=== PATIENT | male | born 1955 | race Caucasian/White ===

== ENCOUNTER 2016-11-23 13:19 | Inpatient (IN) | payer MEDICAID ==
[~2016-11-23] VITALS: Ht 175.3 cm; Wt 68.2 kg
[~2016-11-23 13:19] MED LIST: OXYC10TA6 PO
[2016-11-23] MEDS ORDERED: SODIUM CHLORIDE 0.9% 1,000 ML IV ONE (13:52)
[2016-11-23] MEDS ORDERED: LIDOCAINE 1%, 20ML ONE (13:56)
[2016-11-23] MEDS ORDERED: SENN8.6T4 PO (13:57)
[2016-11-23] MEDS ORDERED: PROM25SU34 RC (13:57)
[2016-11-23] MEDS ORDERED: OXYC15TA75 PO (13:57)
[2016-11-23] MEDS ORDERED: POLY17PO5 PO (13:57)
[2016-11-23] MEDS ORDERED: PRAZ2CAP PO (13:57)
[2016-11-23] MEDS ORDERED: OMEP20TA62 PO (13:57)
[2016-11-23] MEDS ORDERED: METH-356 PO (13:59)
[2016-11-23] MEDS ORDERED: LORA2TAB99 PO (13:59)
[2016-11-23] MEDS ORDERED: [UNRECOGNIZED DRUG - CODE] PO (13:59)
[2016-11-23] MEDS ORDERED: FURO-93 PO (13:59)
[2016-11-23] MEDS ORDERED: FAMOTIDINE 20 MG/2 ML IVP ONE (14:00)
[2016-11-23] MEDS ORDERED: ONDANSETRON 2MG/ML, 2ML IVPush ONE (14:00)
[2016-11-23] MEDS ORDERED: SODIUM CHLORIDE FLUSH 10ML SYR IVF ONE (14:00)
[2016-11-23] MEDS ORDERED: HYDROmorphone 1 MG/ML, 1ML ONE ×2 (14:08→15:17)
[2016-11-23] MEDS ORDERED: ONDANSETRON 2MG/ML, 2ML ONE (14:08)
[2016-11-23] MEDS ORDERED: LORazepam 2 MG/ML, 1ML ONE (14:09)
[2016-11-23] MEDS ORDERED: FAMOTIDINE 20 MG/2 ML ONE (14:09)
[2016-11-23] MEDS: HYDROmorphone 1 MG/ML, 1ML IVPush PRN ×2 (14:15→15:23)
[2016-11-23 14:34] LABS: BLOOD UREA NITROGEN 38 mg/dL (7-18)
[2016-11-23 14:37] LABS: ASPARTATE AMINO TRANSFERASE 96 U/L (15-37)
[2016-11-23 14:48] LABS: DIFF TOTAL CELLS COUNTED 100 CELL DIFF
[2016-11-23 14:50] LABS: ANISOCYTOSIS 2+; HYPOCHROMIA 1+; POIKILOCYTOSIS 1+; TARGET CELLS 1+; VERIFY COUNTS? YES
[2016-11-23 14:51] LABS: LARGE PLATELETS 1+
[2016-11-23] MEDS ORDERED: SODIUM CHLORIDE 0.9% 1,000ML IVBOLUS ONE (16:00)
[2016-11-23] MEDS: ENOXAPARIN 40 MG/0.4 ML SQ SCH (17:00)
[2016-11-23] MEDS ORDERED: ONDANSETRON 2MG/ML, 2ML IVPush PRN (17:00)
[2016-11-23] MEDS: morphine SULFATE ORAL.CONC 20 MG/ML PO SCH ×2 (17:00→19:00)
[2016-11-23] MEDS ORDERED: morphine SULFATE 10 MG/ML, 1ML IVPush PRN (17:00)
[2016-11-23] MEDS ORDERED: ACETAMINOPHEN 325 MG TABLET PO PRN (17:00)
[2016-11-23] MEDS ORDERED: hydrALAzine 20 MG/ML, 1ML IVPush PRN (17:00)
[2016-11-23 17:30] VITALS: BP 98/62
[2016-11-23] MEDS: OXYcodone IR 5MG TABLET PO PRN (18:37)
[2016-11-23 19:37] VITALS: BP 94/57
[2016-11-23] MEDS: SENNOSIDES 8.6 MG TABLET PO SCH (22:05)
[2016-11-23] MEDS: METHADONE 10 MG TABLET PO SCH (22:05)
[2016-11-23] MEDS: POLYETHYLENE GLYCOL 17 GM PACKET PO SCH (22:06)
[2016-11-23] MEDS: NICOTINE 21 MG/24 HR PATCH.TD24 TD SCH (22:06)
[2016-11-24 02:25] VITALS: BP 92/54
[2016-11-24] MEDS: OXYcodone IR 5MG TABLET PO PRN (03:39)
[2016-11-24 05:28] LABS: BLOOD UREA NITROGEN 37 mg/dL (7-18)
[2016-11-24 05:34] LABS: ASPARTATE AMINO TRANSFERASE 104 U/L (15-37)
[2016-11-24 05:49] LABS: DIFF TOTAL CELLS COUNTED 100 CELL DIFF
[2016-11-24 05:51] LABS: VERIFY COUNTS? YES
[2016-11-24 05:52] LABS: ANISOCYTOSIS 1+
[2016-11-24 05:55] LABS: OVALOCYTES 1+; TARGET CELLS 1+
[2016-11-24 05:57] LABS: MICROCYTOSIS 1+
[2016-11-24] MEDS ORDERED: GLUCAGON 1 MG IM PRN ×2 (06:00→07:30)
[2016-11-24] MEDS ORDERED: DEXTROSE 4 GM TAB.CHEW PO PRN ×2 (06:00→07:30)
[2016-11-24] MEDS ORDERED: DEXTROSE 50%, 50ML SYRINGE IVPush PRN ×2 (06:00→07:30)
[2016-11-24 06:26] VITALS: BP 100/61
[2016-11-24] MEDS: CEFTRIAXONE PMX 2GM/50ML 50 ML IV SCH (08:24)
[2016-11-24] MEDS: SENNOSIDES 8.6 MG TABLET PO SCH ×2 (08:24→19:36)
[2016-11-24] MEDS: METHADONE 10 MG TABLET PO SCH ×3 (08:24→23:03)
[2016-11-24] MEDS: PRAZOSIN 2 MG CAPSULE PO SCH (08:24)
[2016-11-24] MEDS: POLYETHYLENE GLYCOL 17 GM PACKET PO SCH ×2 (08:25→19:36)
[2016-11-24] MEDS: DOXYCYCLINE 100MG TABLET PO SCH ×2 (08:25→19:36)
[2016-11-24] MEDS: FUROSEMIDE 20 MG TABLET PO SCH (08:25)
[2016-11-24] MEDS: SODIUM CHLORIDE FLUSH 10ML SYR IVF SCH ×4 (08:26→19:36)
[2016-11-24] MEDS: OMEPRAZOLE MAGNESIUM 20 MG PO SCH ×2 (08:27)
[2016-11-24] MEDS ORDERED: morphine SULFATE 10 MG/ML, 1ML IVPush PRN (11:00)
[2016-11-24] MEDS ORDERED: morphine SULFATE ORAL.CONC 20 MG/ML PO PRN (13:00)
[2016-11-24 13:02] VITALS: BP 83/34
[2016-11-24 16:07] VITALS: BP 89/48
[2016-11-24 17:46] VITALS: BP 91/55
[2016-11-24] MEDS: ENOXAPARIN 40 MG/0.4 ML SQ SCH (17:53)
[2016-11-24] MEDS: NICOTINE 21 MG/24 HR PATCH.TD24 TD SCH (17:53)
[2016-11-24] MEDS: FERROUS SULFATE 325 MG TABLET PO SCH (17:54)
[2016-11-24 18:46] VITALS: BP 92/48
[2016-11-25 02:15] VITALS: BP 88/48
[2016-11-25 05:02] LABS: ASPARTATE AMINO TRANSFERASE 96 U/L (15-37); BLOOD UREA NITROGEN 47 mg/dL (7-18)
[2016-11-25 05:24] LABS: DIFF TOTAL CELLS COUNTED 100 CELL DIFF
[2016-11-25 05:26] LABS: ANISOCYTOSIS 1+; MICROCYTOSIS 1+; OVALOCYTES 1+; TARGET CELLS 1+; VERIFY COUNTS? YES
[2016-11-25 05:27] LABS: HYPOCHROMIA 1+
[2016-11-25 08:55] VITALS: BP 89/47
[2016-11-25] MEDS: CEFTRIAXONE PMX 2GM/50ML 50 ML IV SCH (09:01)
[2016-11-25] MEDS: POLYETHYLENE GLYCOL 17 GM PACKET PO SCH ×2 (09:01→20:48)
[2016-11-25] MEDS: DOXYCYCLINE 100MG TABLET PO SCH (09:02)
[2016-11-25] MEDS: FERROUS SULFATE 325 MG TABLET PO SCH ×2 (09:02→15:27)
[2016-11-25] MEDS: FUROSEMIDE 20 MG TABLET PO SCH (09:02)
[2016-11-25] MEDS: SENNOSIDES 8.6 MG TABLET PO SCH ×2 (09:02→20:48)
[2016-11-25] MEDS: MULTIVITAMIN 1 TABLET PO SCH (09:02)
[2016-11-25] MEDS: PRAZOSIN 2 MG CAPSULE PO SCH (09:02)
[2016-11-25] MEDS: OMEPRAZOLE MAGNESIUM 20 MG PO SCH ×2 (09:03)
[2016-11-25] MEDS: METHADONE 10 MG TABLET PO SCH ×3 (09:03→20:48)
[2016-11-25] MEDS: SODIUM CHLORIDE FLUSH 10ML SYR IVF SCH ×3 (09:03→20:48)
[2016-11-25 14:43] VITALS: BP 80/40
[2016-11-25] MEDS ORDERED: SODIUM CHLORIDE 0.9% 1,000 ML IV SCH ×2 (15:00→18:30)
[2016-11-25] MEDS: ENOXAPARIN 40 MG/0.4 ML SQ SCH (15:26)
[2016-11-25] MEDS: NICOTINE 21 MG/24 HR PATCH.TD24 TD SCH (15:26)
[2016-11-25] MEDS: METRONIDAZOLE PMX 500MG/100ML 100 ML IV SCH (18:02)
[2016-11-25] MEDS ORDERED: ACETAMINOPHEN 325 MG TABLET PO PRN (18:30)
[2016-11-25] MEDS ORDERED: morphine SULFATE ORAL.CONC 20 MG/ML PO PRN (18:30)
[2016-11-25] MEDS ORDERED: DEXTROSE 50%, 50ML SYRINGE IVPush PRN (18:30)
[2016-11-25] MEDS ORDERED: morphine SULFATE 10 MG/ML, 1ML IVPush PRN (18:30)
[2016-11-25] MEDS ORDERED: hydrALAzine 20 MG/ML, 1ML IVPush PRN (18:30)
[2016-11-25] MEDS ORDERED: DEXTROSE 4 GM TAB.CHEW PO PRN (18:30)
[2016-11-25] MEDS ORDERED: SODIUM CHLORIDE FLUSH 10ML SYR IVF SCH (21:00)
[2016-11-25 21:31] VITALS: BP 91/53
[2016-11-26] MEDS: METRONIDAZOLE PMX 500MG/100ML 100 ML IV SCH ×2 (00:46→09:38)
[2016-11-26 01:31] VITALS: BP 84/52
[2016-11-26 04:56] LABS: ASPARTATE AMINO TRANSFERASE 141 U/L (15-37); BLOOD UREA NITROGEN 51 mg/dL (7-18)
[2016-11-26 05:07] LABS: DIFF TOTAL CELLS COUNTED 100 CELL DIFF
[2016-11-26 05:10] LABS: VERIFY COUNTS? YES
[2016-11-26 05:11] LABS: ANISOCYTOSIS 1+; HYPOCHROMIA 1+; MICROCYTOSIS 1+; OVALOCYTES 1+; TARGET CELLS 1+
[2016-11-26] MEDS: FERROUS SULFATE 325 MG TABLET PO SCH (08:08)
[2016-11-26] MEDS: CEFTRIAXONE PMX 2GM/50ML 50 ML IV SCH (08:08)
[2016-11-26 08:27] VITALS: BP 79/44
[2016-11-26] MEDS ORDERED: D5%-0.45% NACL 500 ML IV SCH (08:30)
[2016-11-26] MEDS: SODIUM CHLORIDE FLUSH 10ML SYR IVF SCH (09:00)
[2016-11-26] MEDS: PRAZOSIN 2 MG CAPSULE PO SCH (09:00)
[2016-11-26] MEDS ORDERED: OMEPRAZOLE MAGNESIUM 20 MG PO SCH ×2 (09:00)
[2016-11-26] MEDS ORDERED: SODIUM CHLORIDE 0.9%, 250ML IVBOLUS ONE (09:30)
[2016-11-26] MEDS: POLYETHYLENE GLYCOL 17 GM PACKET PO SCH (09:38)
[2016-11-26] MEDS: METHADONE 10 MG TABLET PO SCH ×2 (09:38→16:00)
[2016-11-26] MEDS: MULTIVITAMIN 1 TABLET PO SCH (09:38)
[2016-11-26] MEDS: SENNOSIDES 8.6 MG TABLET PO SCH (09:38)
[2016-11-26] MEDS ORDERED: morphine SULFATE 125 MG in SODIUM CHLORIDE 0.9% 237.5 ML IV PRN (10:21)
[2016-11-26] MEDS ORDERED: LORazepam INTENSOL 2 MG/ML SL PRN (10:30)
[2016-11-26] MEDS ORDERED: SCOPOLAMINE PATCH, 1.5MG PATCH.TD72 TD PRN (10:30)
[2016-11-26] MEDS ORDERED: ATROPINE OPHTH SOLN 1%, 5ML BC PRN (10:30)
[2016-11-26] MEDS: NICOTINE 21 MG/24 HR PATCH.TD24 TD SCH (17:22)
== END 2016-11-27 14:13 | disposition expired | DRG 435 ==
LOC: ED 15:41 → EDIP 15:46 → 3NW 17:27
PROVIDERS: ADMIT Internal Medicine; ATTEND Internal Medicine
PROC: 0W9G3ZZ Drainage of Peritoneal Cavity, Percutaneous Approach (ICD-10-PCS; principal; 2016-11-23)
DX: C22.9 Malignant neoplasm of liver, not specified as primary or secondary (principal); E43 Unspecified severe protein-calorie malnutrition; J18.9 Pneumonia, unspecified organism; C79.51 Secondary malignant neoplasm of bone; E87.1 Hypo-osmolality and hyponatremia; R18.0 Malignant ascites; Z66 Do not resuscitate; D50.9 Iron deficiency anemia, unspecified; D63.8 Anemia in other chronic diseases classified elsewhere; K72.90 Hepatic failure, unspecified without coma; E16.2 Hypoglycemia, unspecified; K59.00 Constipation, unspecified; I95.9 Hypotension, unspecified; Z51.5 Encounter for palliative care; F41.9 Anxiety disorder, unspecified; G89.29 Other chronic pain; B19.20 Unspecified viral hepatitis C without hepatic coma; F17.210 Nicotine dependence, cigarettes, uncomplicated; Z90.49 Acquired absence of other specified parts of digestive tract; Z79.899 Other long term (current) drug therapy; Z71.6 Tobacco abuse counseling
CPT/HCPCS: 36415; 49083; 71010; 80053; 81003; 82607; 82746; 82962; 83540; 83550; 83690; 83735; 84100; 85025; 85610; 87040; 87070; 87205; 96361; 96374; 96375; 96376; J0696; J1170; J1650; J2405; J3490; J2270; J7030; J7050; S0028